=== PATIENT | male | born 1960 | race Two or more races ===

== ENCOUNTER 2024-04-09 09:27 | Emergency (ER) | payer MEDICAID, SELFPAY ==
[2024-04-09 10:23] VITALS: BP 101/68; PULSE 89; RESP 19; TEMP 36.8; O2SAT 95; BMI 32.5
--- NOTE | 2024-04-09 11:02 | EDNOTE_ITS ---
ED Abdominal Pain RME/HPI General Chief Complaint: Abdominal Pain Stated complaint: ABDOMINAL PAIN Time seen by provider: 04/09/24 10:04 Arrival date/time: 04/09/24 09:27 Limitations: no limitations RME / HPI RME / HPI narrative: History of Present Illness (HPI) A 63-year-old male with a history of choledocolithiasis status post ERCP and biliary stent placement, presents to the ED with a complaint of epigastric abdominal pain. The pain is described as aching and moderate in intensity. The patient reports consulting his PCP and being presumptively treated for H.Pylori with Augmentin. He cannot identify any aggravating or alleviating factors. He denies experiencing fevers, chills, sweats, chest pain, cough, shortness of breath, vomiting, diarrhea, constipation, or urinary symptoms. His labs are all normal, and he has no tenderness to palpation (TTP) on examination. Differential Diagnoses (Ddx) * Gastritis/GERD: Given the epigastric location and the ongoing treatment for H.Pylori. * Peptic Ulcer Disease: Possible cause of epigastric pain, especially with a history of H.Pylori treatment. * Biliary Colic: Due to his history of choledocolithiasis and biliary stent placement. * Pancreatitis: Should be considered given his history of biliary disease. * Functional Dyspepsia: Epigastric pain without identifiable cause. Medical Decision Making (Mdm) * Pain Management: Provide analgesia to manage the patient's epigastric pain. * Further Diagnostic Workup: * Repeat Labs: To monitor for any changes. * Medication Review: Ensure the patient is on appropriate medications for gastritis. * Follow-up: Arrange follow-up with his PCP or a police pilot for ongoing management. * Dietary Advice: Provide guidance on dietary modifications to help manage symptoms. Related Data Home Medications ?Medication ?Instructions ?Recorded ?Confirmed ibuprofen 600 mg tablet 600 mg PO TID PRN Pain 10/29/22 10/29/22 Previous Rx's ?Medication ?Instructions ?Recorded acetaminophen 325 mg capsule 325 mg PO Q4H PRN pain #30 caps 11/27/22 (Tylenol) ciprofloxacin HCl 500 mg tablet 500 mg PO BID #20 tabs 11/27/22 ibuprofen 800 mg tablet 800 mg PO TID PRN pain #30 tabs 03/07/23 Allergies Allergy/AdvReac Type Severity Reaction Status Date / Time No Known Allergies Allergy Verified 04/09/24 09:28 Review of Systems Review of Systems Systems Reviewed: All systems reviewed, normal except as documented Past Medical History Past Medical History NEUROLOGIC: Negative Neurological Disorders CARDIAC: Negative Cardiac Disorders GASTROINTESTINAL: Negative Gastrointestinal Disorders GENITOURINARY: Negative Genitourinary Disorders MUSCULOSKELETAL: Negative Musculoskeletal Disorders ENDOCRINE: Negative Endocrine Disorders HEMATOLOGIC: Negative Blood Disorders OTHER HISTORY: Positive Hospitalization Family History FAMILY HISTORY: Negative Family Psychiatric Problems, Family Respiratory Disorders, Family Cardiac Disorders, Family Gastrointestinal Problems, Family Cancer, Family Surgery or Family Anesthesia Reaction Social History SMOKING STATUS: Never smoker ED Exam General Limitations: Present no limitations General appearance: Present alert and in no apparent distress Head Head exam: Present atraumatic, normocephalic and normal inspection Eye Eye exam: Present normal appearance, PERRL and EOMI ENT ENT exam: Present normal exam, normal oropharynx and mucous membranes moist Neck Neck exam: Present normal inspection, full ROM and trachea midline Chest Chest inspection: Present normal inspection and symmetric chest wall rise Respiratory Respiratory exam: Present normal lung sounds bilaterally Cardiovascular Cardiovascular exam: Present regular rate, normal rhythm and normal heart sounds Abdominal Exam Abdominal exam: Present soft, tenderness (Miild epigastric tenderness to palpation ) and normal bowel sounds Extremities Exam Extremities exam: Present normal inspection and full ROM Back Exam Back exam: Present normal inspection and full ROM Neurological Exam Neurological exam: Present alert, oriented X3 and CN II-XII intact Psychiatric Psychiatric exam: Present normal affect and normal mood Skin Skin exam: Present warm, dry, intact and normal color Course Quality Measures none Orders Category Date Time Status EKG (ED ONLY) *Do not use* NOW Care 04/09/24 10:31 Completed EKG (ED Only) Stat Exams 04/09/24 10:30 Ordered CBC Stat Lab 04/09/24 11:12 Completed Comprehensive Metabolic Panel Stat Lab 04/09/24 11:12 Completed Lipase Stat Lab 04/09/24 11:12 Completed Magnesium Stat Lab 04/09/24 11:12 Completed Troponin I Stat Lab 04/09/24 11:12 Completed Urinalysis Stat Lab 04/09/24 11:45 Completed Acetaminophen Tab [Tylenol ES Tab] Med 04/09/24 10:30 Discontinued 1,000 mg PO X1 ONE Pantoprazole [Protonix] Med 04/09/24 10:30 Discontinued 40 mg PO X1 ONE mg Hyd/Al Hyd/Cipriano Susp [Maalox Susp] Med 04/09/24 10:30 Discontinued 30 ml PO X1 ONE mg Hyd/Al Hyd/Cipriano Susp [Maalox Susp] Med 04/09/24 11:34 Discontinued 30 ml PO X1 ONE Vital Signs Vital signs: Vital Signs Temperature 98.3 F 04/09/24 10:23 Pulse Rate 89 04/09/24 10:23 Respiratory Rate 19 04/09/24 10:23 Blood Pressure 101/68 04/09/24 10:23 Pulse Oximetry (%) 95 04/09/24 10:23 Oxygen Delivery Method Room Air 04/09/24 10:23 Pulse ox is 95% on room air which is adequate. Abdominal Pain MDM MDM Narrative MDM Narrative:: Peg Middleton am scribing for and in the presence of Dr. Donovan. Patient data External records reviewed:: [facility] previous records (I reviewed ED visit on 07/12/2023) Clinical information provided by:: patient Social determinants that could affect healthcare access:: none Patient has the following chronic illnesses:: choledocolithiasis s/p ERCP. s/p biliary stent placement, chronic abdominal pain How is presenting disease/condition affected by chronic disease/condition?: exacerbated by Evaluation data The following diagnostics were reviewed and interpreted by me:: lab results and EKG tracing(s) Lab and/or radiology exams considered but not ordered:: None Interpretation Summary: Labs are at his baseline. Minimally elevated white count is of uncertain clinical importance. Medications / Prescriptions Medications or Prescriptions considered but not ordered:: None Medication administrations:: Medication Administration History Discontinued Medications Acetaminophen (Acetaminophen 500 Mg Tablet) 1,000 mg PO X1 ONE Stop: 04/09/24 10:31 Last Admin: 04/09/24 11:38 Dose: 1,000 mg Documented By: AMARA Al Hydrox/Mg Hydrox/Simethicone (Mg Hyd/Al Hyd/Cipriano (Maalox Reg) Susp 30 Ml Udc) 30 ml PO X1 ONE Stop: 04/09/24 10:31 Last Admin: 04/09/24 11:38 Dose: 30 ml Documented By: AMARA Al Hydrox/Mg Hydrox/Simethicone (Mg Hyd/Al Hyd/Cipriano (Maalox Reg) Susp 30 Ml Udc) 30 ml PO X1 ONE Stop: 04/09/24 11:35 Last Admin: 04/09/24 11:38 Dose: Not Given Documented By: AMARA Non-Admin Reason: Duplicate Medication on eMAR Pantoprazole Sodium (Pantoprazole 40 Mg Tablet) 40 mg PO X1 ONE Stop: 04/09/24 10:31 Last Admin: 04/09/24 11:38 Dose: 40 mg Documented By: AMARA See above Consultations Consultation(s) initiated? (list below): No Diagnosis Differential diagnosis abdominal pain: abdominal pain, pancreatitis and other (Acute coronary syndrome, chronic gastritis) Most likely diagnosis given after review of the tests above:: Chronic gastritis. Patient's condition improved with acetaminophen provided here to the emergency department Admission Indicated Admission indicated?: not indicated Admission Request Was there a request for admission?: No Disposition Plan Disposition Plan: Discharge Discharge Attestation Discharge Attestation: The patient and all family members were given an opportunity to ask questions and understood the discharge instructions. Discharge instructions specifically effects, indications for sooner follow up or return to the emergency department, and the expected course of current diagnosis. Patient condition: Stable Discharge Plan Plan Patient Disposition: HOME (Self Care) Prescriptions/Referrals Prescriptions/Med Rec: No Action ibuprofen 600 mg Tablet 600 mg PO TID PRN (Reason: Pain) Hold Instructions: Resume on 11/01/22. ciprofloxacin HCl 500 mg tablet 500 mg PO BID Qty: 20 0RF acetaminophen [Tylenol] 325 mg capsule 325 mg PO Q4H PRN (Reason: pain) Qty: 30 0RF ibuprofen 800 mg tablet 800 mg PO TID PRN (Reason: pain) Qty: 30 0RF Referrals: Taj Andrews MD [Primary Care Provider] - In 1 week Problem List Clinical Impression: Chronic gastritis Patient/Caregiver Discharge Instructions Discharge Activity: activity as tolerated Education Materials: Understanding Gastritis, ED PEPTIC ULCER vs GASTRITIS Print Language: [place] Stand Alone Forms: Gwen Award Info., Patient Portal Info Letter
[2024-04-09 11:38] LABS: Basophils % (Auto) 0 % (0-2.5); Eosinophils # (Auto) 0.6 Thou/mm3 (0.0-0.5); Eosinophils % (Auto) 4 % (0-10); Hematocrit 48.6 % (41.0-53.0); Hemoglobin 16.7 g/dL (13.5-16.0); Immature Granulocytes % (Auto) 1 % (0-0); Immature Granulocytes Auto 0.08 Thou/mm3 (0.00-0.00); Lymphocytes # (Auto) 0.6 Thou/mm3 (1.0-4.8); Lymphocytes % (Auto) 4 % (10-50); Mean Corpuscular HGB Conc 34.4 g/dl (31.0-37.0); Mean Corpuscular Hemoglobin 30.3 pg (25.0-35.0); Mean Corpuscular Volume 88 fL (80-100); Monocytes # (Auto) 0.8 Thou/mm3 (0.0-0.8); Monocytes % (Auto) 6 % (0-12); Neutrophils % (Auto) 85 % (37-80); Nucleated Red Blood Cell % 0 /100 WBC (0); Platelet Count 174 Thou/mm3 (140-440); RDW Standard Deviation 42.7 fL (35.1-43.9); Red Blood Count 5.51 Miln/mm3 (4.50-5.90)
[2024-04-09] MEDS: PANTOPRAZOLE 40 MG TABLET PO (11:38)
[2024-04-09] MEDS: ACETAMINOPHEN 500 MG TABLET 1000 MG PO (11:38)
[2024-04-09] MEDS: MG HYD/AL HYD/SIME (Maalox Reg) SUSP 30 ML UDC PO (11:38)
[2024-04-09 11:52] VITALS: BP 128/81; PULSE 92; RESP 19; TEMP 36.4; O2SAT 96
[2024-04-09 11:59] LABS: Alanine Aminotransferase 23 U/L (10-49); Albumin, Serum 4.6 gm/dL (3.4-4.8); Albumin/Globulin Ratio 1.4 (1.2-2.2); Alkaline Phosphatase 105 U/L (46-116); Anion Gap 6 (7-16); Aspartate Amino Transferase 15 U/L (0-34); BUN/Creatinine Ratio 19 Ratio (12-20); Bilirubin,Total 0.6 mg/dL (0.3-1.2); Blood Urea Nitrogen 19 mg/dL (9-23); Calcium 9.3 mg/dL (8.3-10.6); Calcium (Corrected) 9.3 mg/dL (8.5-10.1); Carbon Dioxide 24.6 mMol/L (20.0-31.0); Chloride 105 mMol/L (98-107); Estimated Creatinine Clearance 81.2 mL/min (>60); Globulin 3.4 gm/dL (2.3-3.5); Glucose 109 mg/dL (74-106); Lipase 38 U/L (12-53); Magnesium 1.9 mg/dL (1.6-2.6); Osmolality,Calculated 275 (275-295); Potassium 4.1 mMol/L (3.4-5.1); Sodium 136 mMol/L (136-145); Troponin I < 0.002 ng/mL (0.0-0.045); eGFR > 60 See Note
[2024-04-09 12:15] LABS: Collection Type, Urine Clean Catch
[2024-04-09 12:26] LABS: Bacteria,Urine Rare; Bilirubin,Urine Negative (Negative); Blood,Urine Negative (Negative); Clarity,Urine Clear (Clear/Hazy); Color,Urine Yellow (Lt Yel-Yel); Glucose, Urine Trace (Negative); Ketones,Urine Negative (Negative); Leukocyte Esterase,Urine Negative (Negative); Nitrite,Urine Negative (Negative); Protein,Urine 2+ (Neg - Trace); RBC,Urine 3 /hpf (0-3); Specific Gravity,Urine 1.041 (1.001-1.035); Squamous Epithelial Cell,Urine 2 /hpf (0-5); Urobilinogen,Urine Negative mg/dL (0.0-1.0); WBC,Urine 2 /hpf (0-5)
--- NOTE | 2024-04-09 14:55 | PC.NURSE ---
no answer in lobby when called for room in ed
--- NOTE | 2024-04-09 15:29 | PC.NURSE ---
no answer in lobby when called for room in ed
== END 2024-04-09 16:11 | disposition home or self-care (01) ==
PROVIDERS: Emergency Provider Emergency Medicine; PCP Family Medicine
DX: K29.50 Unspecified chronic gastritis without bleeding (principal); R94.31 Abnormal electrocardiogram [ECG] [EKG]
CPT/HCPCS: 36415; 80053; 81001; 83690; 83735; 84484; 85025; 93005; 99283; A9270